=== PATIENT | male | born 1955 | race Caucasian/White ===

== ENCOUNTER 2018-02-26 05:57 | Day surgery (SDC) | payer BC ==
--- NOTE | 2018-02-25 15:53 | HP ---
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 He has a feeding tube in place. Dr. Wang has asked me to see him regarding MediPort access to initiate chemotherap y next week. The patient's daughter is with him as he is unable to talk well. ALCOHOL: None. TOBACCO: Never. MEDICATIONS: Pravastatin and aspirin. ALLERGIES: None. PAST SURGICAL HISTORY: Bilateral inguinal hernia repairs with mesh in the performed for the [facility] tongue cancer 10 years ago, treated with radiation therapy, mandibular reconstruction recently. REVIEW OF SYSTEMS: Ten point noncontributory otherwise. Patient had a left subclavian artery stenos is and underwent left subclavian artery stent placement, Dr. Banuelos restoring circulation to his left arm. PAST MEDICAL HISTORY: Floor of mouth cancer, tongue cancer, recurrent mandibular cancer. PHYSICAL EXAMINATION: VITAL SIGNS: 124 pounds, 5 foot 4 inches, 110/50, 106, 99 degrees. HEAD, EYES, EARS, NOSE, AND THROAT: Unremarkable. LUNGS: Clear to auscultation. CARDIAC: Regular rate and rhythm without murmur or gallop. ABDOMEN: Soft, feeding tube in place. The patient is thin. He appears malnourished. MOUTH: He has swelling about his right facial area consistent with recent mandibular cyst reconstruc tive surgery. ASSESSMENT AND PLAN: In need of antineoplastic chemotherapy access. We will plan placement of low p rofile MediPort. Risks and benefits explained and he consents. We will plan that tomorrow and place ment of low profile MediPort.
[2018-02-25 16:19] VITALS: BMI 17.8
[2018-02-26] MEDS ORDERED: CEFAZOLIN/Water 2 GM/20 ML SYRINGE ONE (06:08)
[2018-02-26] MEDS ORDERED: Lidocaine 2% w/Epinephrine 1:200K 20 ML VIAL ONE (06:31)
[2018-02-26] MEDS ORDERED: Bupivacaine HCl 0.5%/Epinephrine 1:200,000/PF 30 ml Vial ONE ×2 (06:31→07:22)
[2018-02-26] MEDS ORDERED: Lidocaine 2% PF Inj 2 ML VIAL ONE ×2 (06:32→07:22)
[2018-02-26] MEDS ORDERED: Fentanyl 100 MCG/2 ML VIAL ONE (07:46)
[2018-02-26] MEDS ORDERED: Midazolam HCl 2 mg/2 ml Vial ONE (07:46)
[2018-02-26] MEDS ORDERED: Ketamine 50 MG/ML VIAL ONE (07:47)
[2018-02-26] MEDS ORDERED: Propofol 500 MG/50 ML VIAL ONE (07:47)
--- NOTE | 2018-02-26 09:22 | RAD ---
RADIOGRAPH CHEST 1 VIEW: HISTORY: 62-year-old male status post Mediport placement. FINDINGS: There are no air space densities, pulmonary edema, pneumothorax, or cardiomegaly. The lateral costop hrenic angles are sharp. There is a left subclavian implantable vascular access port with distal tip overlying the SVC/right atrial junction. There is also a short left supraclavicular vascular stent. IMPRESSION: 1. No acute cardiopulmonary findings. 2. Implantable vascular access port. zhane POS: [facility]
--- NOTE | 2018-02-26 10:09 | OP ---
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 PROCEDURE: Failed attempt at placement of right subclavian vein MediPort. Successful placement of l eft subclavian vein MediPort. Fluoroscopy used. SURGEON: Dr. Cornel Gonsales. ANESTHESIA: TIVA, local 0.5% Marcaine with epinephrine 30 mL mixed with 2% Xylocaine, 10 mL. DESCRIPTION OF PROCEDURE: The patient was taken to the operating room where under intravenous sedati on, neck and chest prepared with ChloraPrep, draped in routine fashion. Local anesthetic infiltrated into skin and subcutaneous tissue about the operative sites. Initial attempt to cannulate the right subclavian vein was successful and J-wire threaded, but could not be advanced beyond the superior ve na cava and fluoroscopic images confirmed this. Left subclavian vein infraclavicular approach accomp lished and skin incision made and a subcutaneous pocket created with blunt and sharp dissection. Obt ained good hemostasis with the cautery. Dilator and pull-away sheath placed over the J-wire into the superior vena cava, dilator and J-wire removed. Catheter placed with pull-away sheath. Pull-away s titus removed. Fluoroscopic catheter tip placed in optimal position. Catheter tailored to length, c onnected to the MediPort, placed in subcutaneous pocket, secured with 2 interrupted sutures of 3-0 Pr olene. Subcutaneous tissues approximated with 3-0 Monocryl, skin with subdermal 4-0 Monocryl, and De rmaGlue applied. needle used to access the MediPort and aspirated blood and flushed with hepar inized saline solution. Fluoroscopic images revealed good line placement and MediPort placement.
== END 2018-02-26 10:02 | disposition home or self-care (01) ==
LOC: SDC 05:57
PROVIDERS: ATTEND Specialist
PROC: 05H533Z Insertion of Infusion Device into Right Subclavian Vein, Percutaneous Approach (ICD-10-PCS; principal; 2018-02-26)
DX: C04.9 Malignant neoplasm of floor of mouth, unspecified (principal); C02.9 Malignant neoplasm of tongue, unspecified; C41.1 Malignant neoplasm of mandible; E78.00 Pure hypercholesterolemia, unspecified; Z79.82 Long term (current) use of aspirin; Z79.899 Other long term (current) drug therapy
CPT/HCPCS: 71045; C1788; J0670; J1642; J2250; J2704; J3010

== ENCOUNTER 2018-03-13 13:38 | Inpatient (IN) | payer BC ==
[2018-03-13] MEDS ORDERED: Diltiazem 125 MG/25 ML ONE (13:49)
[2018-03-13 14:26] LABS: Hemoglobin 10.8 g/dL (14.0-18.0); Mean Corpuscular HGB CONC 33.5 g/dL (32.0-36.0); Mean Corpuscular Hemoglobin 33.6 pg (27.0-31.0); Platelet Count 63 thou/uL (130-400); RBC Distribution Width 11.7 % (11.5-14.5); Red Blood Cell (RBC) Count 3.23 mill/uL (4.70-6.10)
[2018-03-13 14:35] LABS: ALT (SGPT) 18 U/L (8-55); AST (SGOT) 16 U/L (5-34); Albumin 2.8 g/dL (3.5-5.0); Alkaline Phosphatase 69 U/L (40-150); Anion Gap 19 mmol/L (10-20); Bilirubin, Total 0.6 mg/dL (0.2-1.2); Calc. Creatinine Clearance 0 mL/min (70-130); Carbon Dioxide 17 mmol/L (22-29); Chloride 112 mmol/L (98-107); Estimated GFR-MDRD 15; Glucose 126 mg/dL (70-105); Potassium 3.6 mmol/L (3.5-5.1); Protein, Total 5.8 g/dL (6.0-8.3); Sodium 144 mmol/L (136-145)
[2018-03-13 14:37] LABS: Band 33 % (5-11); Dohle Bodies SLIGHT; Lymphocytes 5 % (21-51); MDiff Complete? YES; Monocytes 3 % (0-10); Neutrophil 59 % (42-75); PLT Morphology Comment Appears Decreased; Polychromasia SLIGHT = 2-3 cells (100X) (0-2/hpf); Toxic Granulation SLIGHT
[2018-03-13 14:40] LABS: CKMB 2.7 ng/mL (0-6.6); Troponin I Less than 0.010 ng/mL (< 0.028)
[2018-03-13 14:50] LABS: BUN (Urea Nitrogen) 149 mg/dL (8.4-25.7)
[2018-03-13] MEDS ORDERED: Sodium Chloride 0.9% 1,000 ML IV SCH (18:34)
[2018-03-13] MEDS ORDERED: cefTRIAXone\\ROCEPHIN 1 GM in Sodium Chloride 0.9% 100 ML IVPB SCH (19:00)
[2018-03-13] MEDS ORDERED: Dextrose 5%-Lactated Ringers 1,000 ML IV SCH (19:00)
[2018-03-13] MEDS: Piperacillin/Tazobactam 2.25 GM in Sodium Chloride 0.9% 100 ML IVPB SCH (19:49)
[2018-03-13 20:11] LABS: Lactic Acid 1.9 mmol/L (0.5-2.2)
[2018-03-13] MEDS ORDERED: Prevnar 13-Val Conj/PF 0.5 ML SYRINGE IM ONE (20:15)
[2018-03-13] MEDS ORDERED: Digoxin 0.5 MG/2 ML AMP SLOW IVP SCH (20:15)
[2018-03-13] MEDS ORDERED: Albumin 25% 25 GM/100 ML BOT IVPB SCH (20:24)
[2018-03-13 20:41] LABS: Magnesium 2.8 mg/dL (1.6-2.6); Phosphorus 3.7 mg/dL (2.3-4.7)
[2018-03-13] MEDS: Cefepime 1 GM in Sodium Chloride 0.9% 100 ML IVPB SCH (20:41)
[2018-03-13] MEDS: Sodium Chloride 0.9% 1,000 ML IV SCH (20:50)
[2018-03-14] MEDS: Hydrocortisone Sod Succ/PF 100 mg/2 ml Vial IVP SCH ×4 (00:04→18:42)
--- NOTE | 2018-03-14 00:46 | HP ---
PRIMARY CARE PHYSICIAN: Cornel Luis M.D. CHIEF COMPLAINT: Feeling bad. HISTORY OF PRESENT ILLNESS: This is a 62-year-old male, patient of Dr. Cornel Luis, who has been fighting head and neck squamous cell cancer, who today alerted his that he was feeling bad, so she brought him into the emergency room. He was found to be hypotensive and tachycardic. He was given several bags of IV fluids in the ER and his pressures were staying in the 80s, at the best I saw was a 94 systolic with a pulse anywhere from 110-150, so plan is to be ICU admitted. PAST MEDICAL HISTORY: Positive for the squamous cell carcinoma of the floor of the mouth, tongue whi ch is and also it is recurrent to the mandible. ALLERGIES: No known drug allergies. MEDICATIONS: Pravastatin and aspirin. PAST SURGICAL HISTORY: He has had multiple surgeries to the left side of his head and neck, which romeo s caused him to lose articulation of his jaw and his mandible. He has had bilateral inguinal hernia mesh repairs in the . The initial mouth and tongue cancer was 10 years ago, treated with radiat ion. He also has had a port placed in the left subclavian anterior chest that was done here a couple of weeks ago. He has been seeing Dr. Wang for Oncology. Of note, he has no alcohol or tobacco e xposure. 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 He is . REVIEW OF SYSTEMS: Feels very weak unsure if he has had fever. He does note he feels sick. Denies any chest pain. He has had on and off little bit of a cough. He has had no nausea or vomiting, russell use have a PEG tube. He has been getting Isosource 250 mL in bolus feedings about every 6 hours. He denies any edema. Denies any paresis or paresthesias. Denies any changes to his urinary habits. Roxi e has noted that he has had some diarrhea that has been attributed to the PEG tube feeds and they wer e turned down some point recently because of that. Neurologically, he is awake. He can communicate mostly through writing and not necessarily phonate due to his previous surgeries that he is understan ding. Of note, he has expressed that he wishes to be a FULL CODE and stated to me was that he wanted to get healthy enough to make it through the chemo. PHYSICAL EXAMINATION: VITAL SIGNS: He is mostly asleep, but he will open his eyes to voice. HEENT: His head is surgically altered especially in the left side of the jaw and neck. NECK: Anterior neck, the skin is thickened. HEART: S1, S2, with tachycardia in the 110-120 range. No rubs or murmurs or gallops. LUNGS: Shallow on inspiration, but I have not hearing any rales, rhonchi or wheezes. ABDOMEN: Soft, flat, nontender. He has a PEG tube in place. It is nonerythematous, no discharge an d the upper left anterior chest is a port placed in the subclavian. There is no erythema, no edema, no discharge. GENITOURINARY: He has bilateral descended testicles. No lesions. EXTREMITIES: Show good palpable pulses x4. No clubbing, cyanosis, or edema. LABORATORY AND X-RAY FINDINGS: His white count is at 3.0, RBCs of 3.2, hemoglobin is at 10.8, hemato crit 32.4, platelets at 63,000, neutrophils at 59 with bands are elevated at 33%. Chemistries: Sodi um is 144, potassium 3.6, chloride is 112, bicarbonate 17, BUN is 149, creatinine is at 4.1. GFR is 15, glucose at 126, calcium is 7, but uncorrected. AST 16, ALT is 18. CK-MB is 2.7, troponin is und etectable. Albumin is 2.8. ASSESSMENT AND PLAN: Very poor oral state with likely infection, possible source of sepsis with hypo tension and septic shock likely with the tachycardia and hypotension. We started on high flow IV flu ids, kept in the ICU. Blood cultures to be taken and started on empiric antibiotics. Dr. Pearson from ICU will be consulted. Dr. Wang is his oncologist will be made aware and consulted. We continue his PEG tube feeds.
[2018-03-14] MEDS: Piperacillin/Tazobactam 2.25 GM in Sodium Chloride 0.9% 100 ML IVPB SCH ×4 (03:14→20:23)
[2018-03-14] MEDS: Sodium Chloride 0.9% 1,000 ML IV SCH (03:16)
[2018-03-14 06:08] LABS: ALT (SGPT) 15 U/L (8-55); AST (SGOT) 13 U/L (5-34); Albumin 2.7 g/dL (3.5-5.0); Alkaline Phosphatase 56 U/L (40-150); Anion Gap 13 mmol/L (10-20); BUN (Urea Nitrogen) 105 mg/dL (8.4-25.7); Bilirubin, Total 0.6 mg/dL (0.2-1.2); Calc. Creatinine Clearance 28 mL/min (70-130); Calcium 6.5 mg/dL (7.8-10.44); Carbon Dioxide 19 mmol/L (22-29); Chloride 126 mmol/L (98-107); Estimated GFR-MDRD 33; Globulin 2.5 g/dL (2.4-3.5); Glucose 101 mg/dL (70-105); Potassium 3.1 mmol/L (3.5-5.1); Protein, Total 5.2 g/dL (6.0-8.3); Sodium 155 mmol/L (136-145)
[2018-03-14 06:30] LABS: Band 36 % (5-11); Hemoglobin 9.1 g/dL (14.0-18.0); Lymphocytes 7 % (21-51); MDiff Complete? YES; Mean Corpuscular HGB CONC 32.5 g/dL (32.0-36.0); Mean Corpuscular Hemoglobin 32.7 pg (27.0-31.0); Mean Platelet Volume 9.6 fL (7.4-10.4); Monocytes 4 % (0-10); Neutrophil 53 % (42-75); PLT Morphology Comment Appears Decreased; Platelet Count 58 thou/uL (130-400); RBC Distribution Width 11.6 % (11.5-14.5); Red Blood Cell (RBC) Count 2.77 mill/uL (4.70-6.10); White Blood Cell (WBC) Count 2.4 thou/uL (4.8-10.8)
[2018-03-14] MEDS: Sodium Chloride 0.45% 1,000 ML IV SCH ×2 (09:31→20:23)
[2018-03-14] MEDS: Cefepime 1 GM in Sodium Chloride 0.9% 100 ML IVPB SCH ×2 (10:13→20:22)
--- NOTE | 2018-03-14 10:52 | RAD ---
FRONTAL VIEW CHEST: COMPARISON: 02/26/2018. INDICATION: ICU patient. Followup. Respiratory insufficiency. FINDINGS: Left-side MediPort is again seen. The lungs remain hyperinflated. There is a generalized interstiti al prominence of each lung. Numerous extrinsic artifacts limit visualization. The chest is otherwis e grossly stable. IMPRESSION: Interstitial prominence of each lung may be on the basis of mild edema or interstitial lung disease. POS: [facility]
--- NOTE | 2018-03-14 12:26 | PRG ---
DATE OF SERVICE: 03/14/2018 SUBJECTIVE: This morning, he is awake, alert, responsive. He is better. He is less short of breath . PHYSICAL EXAMINATION: VITAL SIGNS: His pulse is 105, blood pressure is 110/76, sats 100% on room air, respirations 18. Hi s urine output has been good at . CHEST: Bilateral rhonchi. CARDIAC: Sinus tachycardia. ABDOMEN: Soft. NEUROLOGIC: Neurologically, he is awake, alert, and responsive. LABORATORY DATA: His creatinine is decreased to 2.06, BUN is 105, sodium is 155. Potassium 2.4, hemoglobin and hematocrit 9 and 27, platelet count is 58,000. IMAGING DATA: His chest x-ray this morning shows no acute infiltrates. IMPRESSION: 1. Hypertension. 2. Supraventricular tachycardia. 3. Severe dehydration. 4. Head and neck cancer, status post chemotherapy. 5. Thrombocytopenia. PLAN: X-rays are still abnormal. Switching his IV to half normal. Continue nutrition, PT, and supp ortive care, broad-spectrum antibiotics, await cultures. This is [id number] critical care time.
--- NOTE | 2018-03-14 14:29 | CON ---
DATE OF CONSULTATION: 03/14/2018 REASON FOR CONSULTATION: Tongue cancer. HISTORY OF PRESENT ILLNESS: A 62-year-old male with recurrent squamous cell carcinoma of t ongue and mandible, currently on chemotherapy, presenting to the hospital with severe weakness and di zziness. In the ER, the patient was found to be hypotensive and tachycardic and received multiple li ters of IV fluids and his pressures remained in the 80s and 90s with continued tachycardia, so the harlan camacho was admitted to the ICU. The patient initially received radiation for his cancer back in 2004 with recent recurrence, status post surgeries in [place] and most recently began chemotherapy with ci splatin, Taxotere and 5-FU, which was first received on 03/01/2018. At that time, the patient's BUN was 35 and creatinine was 0.73, and platelets 338. The patient returned to the clinic for lab check on 03/12/2018 and was found to be pancytopenic with platelets of 95, hemoglobin 10.5, white blood carl ls 1.7 with an ANC of 1.5. The patient had complained of weakness and dizziness and his blood pressu re was found to be 67/51. He received IV fluids in the clinic and blood pressure improved to 93/59; however, he was also mildly tachycardic at 108. The patient began to feel better after IV fluids and wished to go home and was told to have a low threshold of returning to the hospital if he had recurr ent dizziness or severe weakness. Yesterday on 03/13/2018, he alerted his that he was not feeli ng well and was brought into the ER. The patient states that he does feel better since admission to the hospital. He denies any pain, difficulty breathing or recurrent dizziness. The patient did have diarrhea prior to admission, but currently this has resolved. REVIEW OF SYSTEMS: Ten point review of systems negative except as per HPI. PAST MEDICAL HISTORY: Squamous cell carcinoma of the tongue and floor of mouth. PAST SURGICAL HISTORY: Multiple surgeries for his oral cancer. SOCIAL HISTORY: Former safety instruction police officer. . ALLERGIES: No known drug allergies. HOME MEDICATIONS: Aspirin and pravastatin. PHYSICAL EXAMINATION: VITAL SIGNS: Pulse 108, blood pressure 114/86, respirations 17, satting 100% on room air. GENERAL: The patient is lying in bed, propped up, in no acute distress. HEENT: Large neck mass, trismus, unable to open mouth with external ulcers on the neck, nonhealing. CARDIOVASCULAR: S1, S2, tachycardic. RESPIRATIONS: Upper airway rhonchi on exam; however, mostly clear to auscultation. ABDOMEN: Soft, nondistended, nontender. EXTREMITIES: SCDs in place. NEUROLOGIC: Limited exam, but nonfocal. PSYCHIATRIC: The patient appears alert and oriented x3; however, he is unable to speak due to trismu s and oral cancer, but is able to write. LABORATORY DATA: White blood cells 2.4, hemoglobin 9.1, platelets 58, 36% band neutrophils. Sodium 144 on admission, currently 155. BUN 138 in the clinic, up to 149 on admission, currently 105. Crea tinine 5.59 in the clinic on 03/12/2018, down to 2.06 today, baseline 0.80-1.0. Cortisol 19.80, albu min 2.7. ASSESSMENT AND PLAN: A 62-year-old male with oral cancer status post radiation in 2004, no w with recurrent disease, status post surgeries and currently on cisplatin, Taxotere and 5-FU and con sideration of future radiation. Patient presented with severe dehydration and acute kidney injury, w hich has remarkably improved with aggressive fluid resuscitation. The patient's diarrhea has resolve d and the patient appears to be doing much better clinically. Blood pressures are currently stable. BUN and creatinine have trended down nicely and blood counts are stable. Patient is not showing any signs of infection. We would recommend continuing intravenous fluids for now and would like to see further improvement of his kidney function prior to discharge. The patient is due for chemotherapy o n 03/22/2018 and this may have to be postponed or his regimen may need to be adjusted based on curren t events. The patient can follow up in the clinic with Dr. Wang upon discharge.
[2018-03-15] MEDS: Hydrocortisone Sod Succ/PF 100 mg/2 ml Vial IVP SCH ×4 (01:04→21:45)
[2018-03-15] MEDS: Piperacillin/Tazobactam 2.25 GM in Sodium Chloride 0.9% 100 ML IVPB SCH ×4 (01:04→20:00)
[2018-03-15] MEDS: Sodium Chloride 0.45% 1,000 ML IV SCH (05:30)
[2018-03-15 06:00] LABS: Anion Gap 14 mmol/L (10-20); BUN (Urea Nitrogen) 70 mg/dL (8.4-25.7); Calc. Creatinine Clearance 42 mL/min (70-130); Calcium 7.3 mg/dL (7.8-10.44); Carbon Dioxide 20 mmol/L (22-29); Chloride 130 mmol/L (98-107); Estimated GFR-MDRD 52; Glucose 190 mg/dL (70-105); Potassium 3.1 mmol/L (3.5-5.1); Sodium 161 mmol/L (136-145)
[2018-03-15] MEDS: Dextrose 5% in Water 1,000 ML IV SCH (07:45)
--- NOTE | 2018-03-15 07:49 | PRG ---
DATE OF SERVICE: 03/15/2018 SUBJECTIVE: This morning, he is awake, alert, responsive, and less short of breath. OBJECTIVE: VITAL SIGNS: His blood pressure has resolved to 120/100, pulse 103, respirations 18. His input and output is good, 4470 in and 2590 out. CHEST: Reveals no wheezing or crackles. CARDIAC: Normal S1 and S2, no gallops. ABDOMEN: Soft. LABORATORY DATA: Creatinine 1.4 and BUN is 70, much improved. Unfortunately, sodium is 161. IMPRESSION: 1. Hypertension, probably volume depleted. I doubt he is septic. 2. Head and neck cancer, status post chemotherapy. 3. Relative adrenal deficiency. PLAN: We will switch over to D5. Continue hydration and supportive care and PT. We will deescalate antibiotics. Incidentally, his echo was normal.
--- NOTE | 2018-03-15 08:02 | PRG ---
DATE OF SERVICE: 03/15/2018 SUBJECTIVE: Mr. Stringer is doing okay this morning. I have reviewed his chart notes. OBJECTIVE: VITAL SIGNS: Blood pressure 95/63, heart rate 57 and regular. GENERAL: He is alert. He is responding. LUNGS: Clear. HEART: Reveals no murmur. LABORATORY DATA: Sodium 166, potassium 3.1, chloride 130, CO2 of 20, BUN is 70, creatinine 1.4. He remains on antibiotics of cefepime and Zosyn. IMPRESSION: A 62-year-old male who has had multiple oral cancer surgeries. He is doing better now. We will discontinue IV fluids per Dr. Pearson to D5W. Kidney function is improving. We will consider stopping antibiotics future date.
--- NOTE | 2018-03-15 09:18 | CON ---
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 In fact, he was yesterday, the [place] [employer] saw Dr. Wang, apparently was giv en some IV fluids, was discharged home, altered blood pressure got better. It is unclear whether new lab was done. His is at the bedside who states that he had significant diarrhea and offered 2 to 3 days at least 6 to 7 times a day. He has a PEG in place, for which he gets nutrition 6 to 7 can s a day. He has evidence of jaw cancer, for which he underwent extensive surgery, reconstruction surgery, and radiation many years ago of 12 years ago. Apparently in October of this year, he had his wire reconstru ction surgery done at [facility] and apparently, there is evidence of recurrent cancer, for wh ich he has seen Dr. Wang for ongoing chemotherapy. Never smoked, never drank. PAST MEDICAL HISTORY: Otherwise, unremarkable for any major medical problems except for his jaw and tongue cancer, hypertension. PAST SURGICAL HISTORY: Other surgeries including surgery on his head and neck, apparently some herni a operation years ago. MEDICATIONS: From home include Pravachol, Phenergan with Codeine. ALLERGIES: None. SOCIAL HISTORY: [place] [employer], retired. PHYSICAL EXAMINATION: GENERAL: He is awake, responsive, unable to communicate, jaw is wired. VITAL SIGNS: His pulse is 114, blood pressure 84/62, sats 100%, respirations 16. CHEST: No wheezing or rhonchi. CARDIAC: Sinus tachycardia. ABDOMEN: Soft without any masses. LABORATORY DATA: White count 3000, hemoglobin and hematocrit 10 and 32, platelet count 63,000. BUN and creatinine of 149 and 4.5. IMPRESSION: 1. Hypertension, probably volume-depleted. I doubt he has got sepsis. 2. Status post chemotherapy. 3. Cachexia. 4. Recurrent head and neck cancer. PLAN: At this stage, continue aggressive hydration, broad-spectrum antibiotics, stress dose of stero ids. Supportive care. We will follow. who states he was everything to be done including intubation, shock etc. Forty-five minutes critical care time.
[2018-03-15] MEDS: Cefepime 1 GM in Sodium Chloride 0.9% 100 ML IVPB SCH ×2 (09:28→21:00)
--- NOTE | 2018-03-15 15:45 | PQF ---
CLINICAL DOCUMENTATION IMPROVEMENT CLARIFICATION FORM: ICD-10 Updated PLEASE DO AN ADDENDUM TO THE PROGRESS NOTE WITH ANY DOCUMENTATION UPDATES OR ADDITIONS AND CARRY THROUGH TO DC SUMMARY. THANK YOU. DATE: 03/15/18 ATTN: DR. MUKHERJEE Please exercise your independent, professional judgment in responding to the clarification form. Clinical indicators are provided on the bottom of this form for your review Please check appropriate box(s) to clarify if the following diagnosis has been ruled in or ruled out: SEPSIS [ ] Ruled in diagnosis [ ] Continue to treat [ ] Resolved [ ] Ruled out diagnosis [ ] Cannot rule out diagnosis [ ] Other diagnosis [ ] Unable to determine In addition, please specify: Present on Admission (POA): [ ] Yes [ ] No [ ] Unable to determine For continuity of documentation, please document condition throughout progress notes and discharge summary. Thank You. CLINICAL INDICATORS - SIGNS / SYMPTOMS / LABS H&P 03/13: "VERY POOR ORAL STATE WITH LIKELY INFECTION, POSSIBLE SOURCE OF SEPSIS WITH HYPOTENSION AND SEPTIC SHOCK LIKELY WITH THE TACHYCARDIA AND HYPOTENSION." PROGRESS NOTE (PULMONARY) 03/15: "I DOUBT HE IS SEPTIC" WBC 03/14: 2.4 BANDS 36 PULSE 122 / 147 / 126 RR 25 BP 95/65 / 96/62 / 97/56 RISKS: H/O ORAL CANCER WITH CHEMO TREATMENT: IV FLUIDS (GIVEN IN ER-03/15) IV ZOSYN (-PRESENT) IV MAXIPIME (03/13-PRESENT) BLOOD CULTURES STOOL CULTURES (This form is maintained as a part of the permanent medical record) 2014 [employer]. All Rights Reserved FANY [email or web address] Office: [phone] [facility] HEALTH SYSTEMZoltan
[2018-03-15 22:54] LABS: Anion Gap 10 mmol/L (10-20); BUN (Urea Nitrogen) 55 mg/dL (8.4-25.7); Calc. Creatinine Clearance 46 mL/min (70-130); Calcium 7.6 mg/dL (7.8-10.44); Carbon Dioxide 22 mmol/L (22-29); Estimated GFR-MDRD 58; Glucose 262 mg/dL (70-105); Potassium 3.1 mmol/L (3.5-5.1); Sodium 158 mmol/L (136-145)
[2018-03-15 22:57] LABS: Chloride 129 mmol/L (98-107)
[2018-03-16] MEDS: traMADol HCl 50 MG TAB PO PRN (01:21)
[2018-03-16] MEDS: Dextrose 5% in Water 1,000 ML IV SCH ×4 (01:22→12:43)
[2018-03-16] MEDS: Piperacillin/Tazobactam 2.25 GM in Sodium Chloride 0.9% 100 ML IVPB SCH (01:23)
[2018-03-16 06:14] LABS: Anion Gap 13 mmol/L (10-20); BUN (Urea Nitrogen) 51 mg/dL (8.4-25.7); Calc. Creatinine Clearance 46 mL/min (70-130); Calcium 8.1 mg/dL (7.8-10.44); Carbon Dioxide 21 mmol/L (22-29); Chloride 131 mmol/L (98-107); Estimated GFR-MDRD 59; Glucose 244 mg/dL (70-105); Potassium 3.4 mmol/L (3.5-5.1); Sodium 162 mmol/L (136-145)
[2018-03-16 06:19] LABS: Band 36 % (5-11); Hemoglobin 9.2 g/dL (14.0-18.0); Lymphocytes 4 % (21-51); MDiff Complete? YES; Mean Corpuscular HGB CONC 32.6 g/dL (32.0-36.0); Mean Corpuscular Hemoglobin 33.2 pg (27.0-31.0); Mean Platelet Volume 10.9 fL (7.4-10.4); Monocytes 2 % (0-10); Neutrophil 58 % (42-75); PLT Morphology Comment Appears Decreased; Platelet Count 62 thou/uL (130-400); RBC Distribution Width 12.1 % (11.5-14.5); Red Blood Cell (RBC) Count 2.75 mill/uL (4.70-6.10); White Blood Cell (WBC) Count 9.2 thou/uL (4.8-10.8)
--- NOTE | 2018-03-16 07:59 | PRG ---
DATE OF SERVICE: 03/16/2018 SUBJECTIVE: Mr. Stringer is awake and alert. He states he is feeling a little bit better today. He se ems to be looking better a little bit. PHYSICAL EXAMINATION: VITAL SIGNS: His blood pressure 118/72, pulse 81 and regular, O2 sats 99% on room air. GENERAL: He looks better. LUNGS: Reveal bilateral breath sounds. HEART: Reveals a regular rate and rhythm without murmurs, gallops or rubs. ABDOMEN: Soft. There appeared to be no tenderness. LABORATORY DATA: White blood count 9.2, hemoglobin 9.2, hematocrit 28.1, sodium 162, potassium 3.4, chloride 131, CO2 21, BUN 51, creatinine 1.25. Micro; blood cultures remained negative. Clostridium difficile antigen positive, toxin negative. IMPRESSION: 1. This is a 62-year-old male status post extensive surgery for oral cancer. 2. Hypernatremia. 3. History of atrial fibrillation, now resolved. 4. History of acute renal injury, now improved. PLAN: 1. With regards to his hypernatremia I will stop his piperacillin to see if a reduce in his total so dium intake would help. He is remaining on D5W at this time. 2. With regard to his Clostridium difficile toxin, I will ask Dr. Pearson to discuss whether he should remain on this therapy. Should he require any therapy or should we still repeat the test. I will go ahead and order a repeat test to see if the antigen and toxin turn positive. If that does, he will require therapy, possibly could discontinue cefepime as well in the future.
--- NOTE | 2018-03-16 08:56 | PRG ---
DATE OF SERVICE: 03/16/2018 Telly Stringer this morning is awake, alert, responsive. Weak. PHYSICAL EXAMINATION: VITAL SIGNS: His I&Os are 1231 in, 1625 out. Blood pressure is 188/90, sats 99%, respirations 10, p ulse 91. He denies any pain or discomfort. CHEST: Chest reveals decreased breath sounds, no wheezing. CARDIAC: Normal S1, normal S2. No gallops. ABDOMEN: Soft, no masses. LABORATORY DATA: White count is 9000, H&H 9 and 28, platelet count is low. Glucose 244, BUN and cre atinine are much improved, 51 and 1.25. Sodium 162. IMPRESSION: 1. Azotemia, improved. 2. Electrolyte imbalance, slowly correcting. 3. Presumed aspiration pneumonia. 4. Head and neck cancer. PLAN: He can be transferred to Oncology. Continue PT and supportive care, p.o. antibiotics. There is no need to change his IV fluids. Continue D5 at 125 an hour, eventually correct sodium.
[2018-03-16] MEDS: Cefdinir 300 MG CAP PO SCH ×2 (09:10→21:08)
--- NOTE | 2018-03-16 11:05 | CON ---
DATE OF CONSULTATION: 03/16/2018 REASON FOR CONSULTATION: Hypernatremia. HISTORY OF PRESENT ILLNESS: This 62-year-old gentleman, who was admitted for feeling bad. The patie nt had a sodium of 144 on admission which increased to 155 on 03/14/2018, and then to 161 on 03/15/20 18 and has increased to 162 today, so I was consulted. The patient is on D5 water with no major impr ovement. His creatinine has improved from 4 to 1.2. The patient denies any other complaints. PAST MEDICAL HISTORY: ____ cell carcinoma of the tongue. History of Clostridium difficile, multiple surgeries of the head and neck. SOCIAL HISTORY: No alcohol use. FAMILY HISTORY: Negative for ESRD. ALLERGIES: Reviewed. HOME MEDICATIONS: List reviewed. REVIEW OF SYSTEMS: A 15-point review of systems was performed and negative except all noted above. GENERAL: Weakness- HEAD: Headache- NECK: No swelling or lumps. NOSE: No epistaxis or discharge. EYES: No diplopia or pain. RESPIRATORY: Dyspnea- CARDIOVASCULAR: Chest pain- GASTROINTESTINAL: Nausea- /COOPER HELPER: Hematuria- MUSCULOSKELETAL: No joint pain. NEUROPSYCHIATIC SYSTEMS: No suicidal ideation. No ideation. SKIN: Denies any rash or ulcer. CONSTITUTIONAL: No fever or chills. PHYSICAL EXAMINATION: GENERAL: Patient is awake, alert, in no acute distress. VITAL SIGNS: Afebrile, pulse 70, breathing 16, blood pressure 94/61. OBJECTIVE: See above. Awake, alert, in no acute distress. GENERAL APPEARANCE AND MENTAL STATUS: Fair. HEAD/NECK: Normocephalic. Atraumatic. EYES: EOMI. No deformity. EARS: Clear. No ulcers. NOSE: Intact. No lesions. MOUTH: Clear. No discharge. THROAT: Clear. No exudate. LUNGS: Clear. No crackles. CARDIAC: S1, S2. No rub. ABDOMEN: Benign. BS+. GENITALIA/RECTUM: Knott absent. BACK/EXTREMITIES: Edema 0+ Ulcer- NEUROLOGICAL: Alert and motor intact. SKIN: Rash- Bruise- LYMPHATICS: Edema- Ulcer- LABORATORY DATA: Sodium 162, potassium 3.4, creatinine 1.2. ASSESSMENT AND RECOMMENDATIONS: 1. Acute kidney injury, improved. 2. Uremia, improved. 3. Hypernatremia. Would increase the D5 water to 150 an hour and check sodium every 3 hours.
[2018-03-16 12:14] LABS: Anion Gap 8 mmol/L (10-20); BUN (Urea Nitrogen) 46 mg/dL (8.4-25.7); Calc. Creatinine Clearance 53 mL/min (70-130); Calcium 7.8 mg/dL (7.8-10.44); Carbon Dioxide 24 mmol/L (22-29); Estimated GFR-MDRD 68; Glucose 135 mg/dL (70-105); Potassium 3.4 mmol/L (3.5-5.1); Sodium 159 mmol/L (136-145)
[2018-03-16 12:19] LABS: Chloride 130 mmol/L (98-107)
[2018-03-16] MEDS: Hydrocortisone Sod Succ/PF 100 mg/2 ml Vial IVP SCH ×2 (12:44→21:07)
[2018-03-16 19:33] LABS: Anion Gap 11 mmol/L (10-20); BUN (Urea Nitrogen) 36 mg/dL (8.4-25.7); Calc. Creatinine Clearance 64 mL/min (70-130); Calcium 7.7 mg/dL (7.8-10.44); Carbon Dioxide 24 mmol/L (22-29); Estimated GFR-MDRD 86; Glucose 172 mg/dL (70-105); Potassium 3.5 mmol/L (3.5-5.1); Sodium 158 mmol/L (136-145)
[2018-03-16 19:36] LABS: Chloride 127 mmol/L (98-107)
[2018-03-17] MEDS: Dextrose 5% in Water 1,000 ML IV SCH (03:34)
[2018-03-17 04:06] LABS: Anion Gap 8 mmol/L (10-20); BUN (Urea Nitrogen) 28 mg/dL (8.4-25.7); Calc. Creatinine Clearance 73 mL/min (70-130); Carbon Dioxide 24 mmol/L (22-29); Chloride 119 mmol/L (98-107); Estimated GFR-MDRD Greater than 90; Glucose 171 mg/dL (70-105); Potassium 3.2 mmol/L (3.5-5.1); Sodium 148 mmol/L (136-145)
[2018-03-17] MEDS ORDERED: Dextrose 5% in Water 1,000 ML IV SCH ×2 (08:57→21:15)
--- NOTE | 2018-03-17 09:17 | PRG ---
DATE OF SERVICE: 03/17/2018 SUBJECTIVE: This morning, he is awake, alert and responsive. He is still having significant diarrhe a. He is drooling from his mouth, he has still got secretions, poor cough. OBJECTIVE: VITAL SIGNS: His blood pressure is 109/73, sats are 100% on room air, respiration 16, temperature is 98. CHEST: No wheezing. CARDIAC: Normal S1, S2, no gallops. ABDOMEN: Soft, no mass. LABORATORY DATA: Sodium is 148. Creatinine and BUN are back to normal. Calcium 7, glucose 171. IMPRESSION: 1. Azotemia, prerenal, resolved. 2. Electrolyte imbalance, much improved. 3. Clostridium difficile colitis. 4. Tracheobronchitis. PLAN: We initiated vancomycin p.o. for C. diff colitis. DISPOSITION: As per Oncology and primary care physician.
[2018-03-17] MEDS: Hydrocortisone Sod Succ/PF 100 mg/2 ml Vial IVP SCH (09:19)
[2018-03-17] MEDS: Vancomycin HCl 25 MG/ML Oral PO SCH ×3 (10:39→20:29)
[2018-03-17] MEDS: traMADol HCl 50 MG TAB PO PRN ×3 (10:41→23:05)
[2018-03-17 10:56] LABS: Anion Gap 11 mmol/L (10-20); BUN (Urea Nitrogen) 23 mg/dL (8.4-25.7); Calc. Creatinine Clearance 73 mL/min (70-130); Calcium 7.2 mg/dL (7.8-10.44); Carbon Dioxide 25 mmol/L (22-29); Chloride 113 mmol/L (98-107); Estimated GFR-MDRD Greater than 90; Glucose 86 mg/dL (70-105); Potassium 3.1 mmol/L (3.5-5.1); Sodium 146 mmol/L (136-145)
[2018-03-17] MEDS ORDERED: Dextrose 5% in Water 500 ML IV SCH (11:30)
--- NOTE | 2018-03-17 11:53 | PRG ---
DATE OF SERVICE: 03/17/2018 SUBJECTIVE: This is a 62-year-old gentleman being seen for acute kidney injury and hypernatremia. T he patient denies any nausea, vomiting or chest pain. PHYSICAL EXAMINATION: GENERAL: Patient is awake, alert. VITAL SIGNS: Afebrile, pulse 79, breathing 16, blood pressure 109/73. HEAD/NECK: Normocephalic. Atraumatic. EYES: EOMI. No deformity. EARS: Clear. No ulcers. NOSE: Intact. No lesions. MOUTH: Clear. No discharge. THROAT: Clear. No exudate. LUNGS: Clear. No crackles. CARDIAC: S1, S2. No rub. ABDOMEN: Benign. BS+. GENITALIA/RECTUM: Knott absent. BACK/EXTREMITIES: Edema 0+ Ulcer- NEUROLOGICAL: Alert and motor intact. SKIN: Rash- Bruise- LYMPHATICS: Edema- Ulcer- LABORATORY DATA: Show hemoglobin 9.2, sodium is 148, potassium 3.2. ASSESSMENT AND PLAN: 1. Acute kidney injury improved. 2. Hypernatremia, improved. Stop D5W. 3. Hypokalemia. Recommend aggressive potassium replacement. No indication for dialysis.
[2018-03-17 14:55] VITALS: BMI 16.5
--- NOTE | 2018-03-17 17:37 | PRG ---
DATE OF SERVICE: 03/17/2018 SUBJECTIVE: Mr. Stringer is feeling much better. He is more alert and active. OBJECTIVE: VITAL SIGNS: O2 sats 100% on room air, BP 115/70. LUNGS: Clear. HEART: Reveals no murmur. ABDOMEN: Soft, bowel sounds present and are active. LABORATORY: Sodium is now 146, potassium 3.1, BUN 23, creatinine 0.79. IMPRESSION: Acute dehydration with acute hypernatremia and acute renal injury, all improved. PLAN: The patient will be probably cleared for discharge tomorrow. He has developed possibly C. dif ficile colitis. He has now been placed on vancomycin. I have expressed to the patient, the probabil ity of him going home. He is anxious to do this.
[2018-03-17] MEDS ORDERED: Dextrose 10% in Water 1,000 ML IV SCH (21:15)
[2018-03-18 05:40] LABS: Anion Gap 7 mmol/L (10-20); BUN (Urea Nitrogen) 20 mg/dL (8.4-25.7); Calc. Creatinine Clearance 83 mL/min (70-130); Calcium 7.4 mg/dL (7.8-10.44); Carbon Dioxide 28 mmol/L (22-29); Chloride 114 mmol/L (98-107); Estimated GFR-MDRD Greater than 90; Glucose 109 mg/dL (70-105); Potassium 3.3 mmol/L (3.5-5.1); Sodium 146 mmol/L (136-145)
[2018-03-18 06:59] VITALS: BP 97/55; TEMP 97.1
--- NOTE | 2018-03-18 07:34 | PRG ---
DATE OF SERVICE: 03/18/2018 SUBJECTIVE: Mr. Stringer is resting well. He is alert and awake. He does not have any complaints. PHYSICAL EXAMINATION: VITAL SIGNS: Temperature 97.1, blood pressure 97/55. LUNGS: Clear. HEART: Reveals no murmur. LABORATORY DATA: His sodium is 146, potassium 3.3, creatinine 0.7. IMPRESSION: Patient has recovered well from his dehydration, probably induced by tube feedings which resulted in acute renal injury and atrial fibrillation, but has not resolved. PLAN: Patient will be discharged home. He does probably does have C. difficile colitis, which is be ing treated with oral vancomycin. He has suffered some hypokalemia. He will be discharged home on o ral vancomycin as well as potassium supplementation. He will be followed up with Dr. Wang.
[2018-03-18] MEDS: Vancomycin HCl 25 MG/ML Oral PO SCH (08:20)
[2018-03-18] MEDS: traMADol HCl 50 MG TAB PO PRN (08:24)
--- NOTE | 2018-03-18 09:57 | DIS ---
DATE OF ADMISSION: 03/13/2018 DATE OF DISCHARGE: 03/18/2018 DISCHARGE DIAGNOSES: 1. 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 2. Dehydration. 3. Acute renal injury. 4. Atrial fibrillation. 5. Clostridium difficile colitis. ADMITTING PHYSICIAN: Dr. Cornel Luis. CONSULTING PHYSICIAN: Dr. Pearson, Dr. Wang, Dr. Gonzalez. HOSPITAL COURSE: The patient is a 62-year-old male who underwent a significant resection of the oral area for squamous cell carcinoma. He had been on PEG feedings. He was found to be hypotensive, tac hycardic, and was hospital and found to have some atrial fibrillation. This would resolve with IV fluid hydration. He was placed in the ICU where he has been on IV antibiotics for possible sepsi s. His hospital course was one of slow, steady improvement. It was apparently not sepsis but signi ficant dehydration. He did become hyponatremic and this was corrected with IV fluids. His hospital course was of slow, steady improvement. By 03/18/2018, he was discharged home. During his hospitali zation, he developed some possible C. difficile colitis manifested by diarrhea as well as a positive C. difficile antigen but negative toxin. He was discharged home on potassium chloride 40 mEq daily p er PEG tube, Vancomycin 250 mg t.i.d. per PEG tube. He was also discharged home on PEG feedings. He will be following up principaly with Dr. Wang. He can follow up with myself on a p.r.n. basis.
--- NOTE | 2018-03-18 10:12 | PRG ---
DATE OF SERVICE: 03/18/2018 This is a 62-year-old gentleman, he is much improved. PHYSICAL EXAMINATION: VITAL SIGNS: Sats are 98 on room air, respirations 16, pulse 64, temperature 97 , blood pressure 97/55. CHEST: Chest reveals decreased breath sounds, no wheezing. CARDIAC: Normal S1, S2. No gallops. ABDOMEN: Soft, no masses. PLAN: 1. Clostridium difficile colitis. 2. Hypertension. 3. Azotemia. 4electrolyte imbalance balance much improved. PLAN: He could be discharged home. Follow up with his oncologist and primary care physician. CASSANDRA
--- NOTE | 2018-03-18 22:01 | PRG ---
DATE OF SERVICE: 03/18/2018 SUBJECTIVE: A 62-year-old gentleman being seen for acute kidney injury and hypernatremia. The patie nt denies any nausea, vomiting or chest pain. PHYSICAL EXAMINATION: GENERAL: Patient is awake, alert. VITAL SIGNS: Pulse , breathing 16, blood pressure 97/55. GENERAL APPEARANCE AND MENTAL STATUS: Fair. HEAD/NECK: Normocephalic. Atraumatic. EYES: EOMI. No deformity. EARS: Clear. No ulcers. NOSE: Intact. No lesions. MOUTH: Clear. No discharge. THROAT: Clear. No exudate. LUNGS: Clear. No crackles. CARDIAC: S1, S2. No rub. ABDOMEN: Benign. BS+. GENITALIA/RECTUM: Knott absent. BACK/EXTREMITIES: Edema 0+ Ulcer- NEUROLOGICAL: Alert and motor intact. SKIN: Rash- Bruise- LYMPHATICS: Edema- Ulcer- LABORATORY DATA: Show hemoglobin 9.2, potassium 3.2, sodium 146. ASSESSMENT AND RECOMMENDATIONS: 1. Acute kidney injury, resolved. 2. Hypernatremia, improved. 3. Hypokalemia. Recommend high potassium diet. I recommend to follow daily labs.
== END 2018-03-18 10:32 | disposition home health service (06) | DRG 683 ==
LOC: ERS 13:38 → CCU 18:28 → ONC 03-16 10:12
PROVIDERS: ADMIT Family Medicine; ATTEND Family Medicine
DX: N17.9 Acute kidney failure, unspecified (principal); A04.72 Enterocolitis due to Clostridium difficile, not specified as recurrent; R64 Cachexia; Z68.1 Body mass index [BMI] 19.9 or less, adult; I47.1 Supraventricular tachycardia; E87.0 Hyperosmolality and hypernatremia; E86.0 Dehydration; C04.8 Malignant neoplasm of overlapping sites of floor of mouth; C02.9 Malignant neoplasm of tongue, unspecified; Z88.8 Allergy status to other drugs, medicaments and biological substances; Z93.1 Gastrostomy status; I48.91 Unspecified atrial fibrillation; I10 Essential (primary) hypertension; D69.6 Thrombocytopenia, unspecified; J40 Bronchitis, not specified as acute or chronic; E87.6 Hypokalemia
CPT/HCPCS: 36415; 36416; 71045; 80048; 80053; 82248; 82533; 82553; 83605; 83615; 83735; 84100; 84484; 84550; 85025; 87040; 87324; 87449; 87493; 93005; 93306; 94640; 96361; 96365; 96376; G8978-GP-CJ; G8979-GP-CI; J0692; J1160; J1720; J2543; J7050; J7620; P9047

== ENCOUNTER 2018-03-23 08:44 | Day surgery (SDC) | payer BC ==
[2018-03-23] MEDS ORDERED: diphenhydrAMINE 25 MG CAP PO SCH (09:15)
[2018-03-23] MEDS ORDERED: Acetaminophen 500 MG TAB PO SCH (09:15)
[2018-03-23] MEDS ORDERED: Sodium Chloride 0.9% 40 ML ONE (09:33)
[2018-03-23 14:27] LABS: Hemoglobin 8.6 g/dL (14.0-18.0)
[2018-03-23 16:56] VITALS: BP 91/44; TEMP 98.4
== END 2018-03-23 16:56 | disposition home or self-care (01) ==
LOC: ONC/OP 08:44
PROVIDERS: ATTEND Internal Medicine Hematology & Oncology
PROC: 30233N1 Transfusion of Nonautologous Red Blood Cells into Peripheral Vein, Percutaneous Approach (ICD-10-PCS; principal; 2018-03-23)
DX: D64.9 Anemia, unspecified (principal); D69.6 Thrombocytopenia, unspecified
CPT/HCPCS: 36430; 85014; 85018; 86850; 86900; 86901; J1642; P9016

== ENCOUNTER 2018-05-13 14:34 | Day surgery (SDC) | payer BC ==
[2018-05-13] MEDS ORDERED: Acetaminophen 500 MG TAB PO SCH (15:15)
[2018-05-13] MEDS ORDERED: Sodium Chloride 0.9% 30 ML ONE (15:15)
[2018-05-13] MEDS ORDERED: diphenhydrAMINE 25 MG CAP PO SCH (15:15)
[2018-05-13 18:12] VITALS: BP 95/54; TEMP 97.4
[2018-05-13 18:48] LABS: #Lymphocytes 0.3 thou/uL (1.20-3.40); #Monocytes 0.1 thou/uL (0.11-0.59); #Neutrophils 4.6 thou/uL (1.40-6.50); %Basophils 0.5 % (0.0-1.0); %Lymphocytes 5.6 % (21.0-51.0); %Monocytes 1.5 % (0.0-10.0); %Neutrophils 92.4 % (42.0-75.0); Hemoglobin 8.6 g/dL (14.0-18.0); Mean Corpuscular HGB CONC 32.4 g/dL (32.0-36.0); Mean Corpuscular Hemoglobin 31.9 pg (27.0-31.0); Mean Corpuscular Volume 98.4 fL (78.0-98.0); Platelet Count 186 thou/uL (130-400); RBC Distribution Width 14.9 % (11.5-14.5); Red Blood Cell (RBC) Count 2.71 mill/uL (4.70-6.10); White Blood Cell (WBC) Count 4.9 thou/uL (4.8-10.8)
== END 2018-05-13 18:48 | disposition home or self-care (01) ==
LOC: ONC/OP 14:34
PROVIDERS: ATTEND Internal Medicine Hematology & Oncology
PROC: 30233N1 Transfusion of Nonautologous Red Blood Cells into Peripheral Vein, Percutaneous Approach (ICD-10-PCS; principal; 2018-05-13)
DX: D64.9 Anemia, unspecified (principal); Z79.2 Long term (current) use of antibiotics; Z79.82 Long term (current) use of aspirin; Z79.899 Other long term (current) drug therapy
CPT/HCPCS: 36415; 36430; 80053; 82248; 83615; 84100; 84550; 85025; 86850; 86900; 86901; J1642; P9016

== ENCOUNTER 2018-05-27 13:34 | Emergency (ER) | payer BC ==
--- NOTE | 2018-05-27 15:32 | RAD ---
KUB 05/27/18 COMPARISON: None. HISTORY: Feeding tube displaced, evaluate PEG tube placement. FINDINGS: The patient was administered gastrografin via the PEG tube and a frontal radiograph of the abdomen is performed. This study demonstrates contrast media within the stomach confirming an intraluminal loca tion of the distal tip of the gastrostomy tube. Supine imaging limits assessment for free air and sma ll bowel obstruction. IMPRESSION: Contrast media within the stomach as above. POS: [facility]
--- NOTE | 2018-05-27 16:10 | ULT ---
LEFT UPPER EXTREMITY VENOUS DOPPLER ULTRASOUND 05/27/18 COMPARISON: None. HISTORY: Edema, assess for deep venous thrombosis of the left upper extremity. TECHNIQUE: Multiplanar hagen scale sonographic imaging venous structures of the left upper extremity obtained wit h color flow and spectral analysis. FINDINGS: Secondary to bandaging material, the fleet maintenance manager reports that she was unable to assess the left inter nal jugular vein. There is extensive deep venous thrombosis involving the imaged subclavian and axill donald vein with small amount of blood flow within the subclavian and axillary vein. Radial and ulnar ve ins are patent. The basilic and brachial vein are expanded and filled with extensive clot. Imaged por tions of the cephalic vein appear patent. IMPRESSION: Extensive deep venous thrombosis of the left upper extremity including the left subclavian vein, left axillary vein, and left brachial vein. Performing fleet maintenance manager reports that she relayed this information to Dr. Tesfaye at approximately 3:30 p. m., 05/27/18. POS: [facility]
[2018-05-27 16:11] LABS: #Lymphocytes 0.3 thou/uL (1.20-3.40); #Monocytes 0.3 thou/uL (0.11-0.59); #Neutrophils 6.2 thou/uL (1.40-6.50); %Basophils 0.2 % (0.0-1.0); %Eosinophils 0.1 % (0.0-10.0); %Lymphocytes 3.7 % (21.0-51.0); %Monocytes 4.4 % (0.0-10.0); %Neutrophils 91.6 % (42.0-75.0); Hemoglobin 9.4 g/dL (14.0-18.0); Mean Corpuscular HGB CONC 32.5 g/dL (32.0-36.0); Mean Corpuscular Hemoglobin 33.1 pg (27.0-31.0); Mean Platelet Volume 7.1 fL (7.4-10.4); Platelet Count 406 thou/uL (130-400); RBC Distribution Width 15.3 % (11.5-14.5); Red Blood Cell (RBC) Count 2.83 mill/uL (4.70-6.10); White Blood Cell (WBC) Count 6.8 thou/uL (4.8-10.8)
[2018-05-27 16:18] LABS: INR-International Normal Ratio 1.1; Prothrombin Time 14.2 SEC (12.0-14.7)
[2018-05-27 16:19] LABS: PTT 31.8 SEC (22.9-36.1)
[2018-05-27 16:29] LABS: ALT (SGPT) 9 U/L (8-55); AST (SGOT) 10 U/L (5-34); Albumin 3.1 g/dL (3.5-5.0); Alkaline Phosphatase 80 U/L (40-150); Anion Gap 13 mmol/L (10-20); BUN (Urea Nitrogen) 33 mg/dL (8.4-25.7); Bilirubin, Total 0.4 mg/dL (0.2-1.2); Calc. Creatinine Clearance 0 mL/min (70-130); Calcium 10.4 mg/dL (7.8-10.44); Carbon Dioxide 28 mmol/L (22-29); Chloride 110 mmol/L (98-107); Estimated GFR-MDRD 83; Globulin 3.7 g/dL (2.4-3.5); Glucose 115 mg/dL (70-105); Potassium 4.4 mmol/L (3.5-5.1); Protein, Total 6.8 g/dL (6.0-8.3); Sodium 147 mmol/L (136-145)
[2018-05-27] MEDS ORDERED: Iopamidol 370 76% 100 ML VIAL ONE (16:54)
--- NOTE | 2018-05-27 17:07 | CT ---
CT ARTERIOGRAM CHEST WITH IV CONTRAST AND 3D MIP IMAGING: Date: 05/27/18 HISTORY: Chest pain. Dyspnea. FINDINGS: There is good contrast opacification of pulmonary arteries and thoracic aorta with normal branching o f the great vessels. Arterial stent is present at the proximal left subclavian artery. Lungs are hype rinflated. Small amount of mucus within the posterior aspect of the lower trachea. Airway is otherwis e widely patent. No enlarged lymph nodes are apparent within the mediastinum. Within the partially vi sualized upper abdomen, percutaneous gastric feeding catheter is in good position. IMPRESSION: 1. No CT evidence of pulmonary embolus. 2. COPD. POS: [facility]
[2018-05-27] MEDS ORDERED: Enoxaparin Sodium 80 MG/0.8 ML SYRINGE ONE (18:14)
== END 2018-05-27 18:45 | disposition home or self-care (01) ==
LOC: ERS 13:34
DX: K94.23 Gastrostomy malfunction (principal); I82.622 Acute embolism and thrombosis of deep veins of left upper extremity; E78.5 Hyperlipidemia, unspecified; Z79.891 Long term (current) use of opiate analgesic; Z79.899 Other long term (current) drug therapy
CPT/HCPCS: 36415; 43762; 71275; 76000; 80053; 85025; 85610; 85730; 96372; J1650